=== PATIENT | male | born 1970 | race Caucasian/White ===

== ENCOUNTER 2023-02-11 12:06 | Day surgery (SDC) | payer OTHER ==
[~2023-02-11] VITALS: Ht 167.6 cm; Wt 115.2 kg
[2023-02-11 13:33] LABS: BASOPHILS % (AUTO) 0.3 % (0.0-2.0); EOSINOPHILS # (AUTO) 0.3 K/uL (0-0.4); EOSINOPHILS % (AUTO) 3.3 % (0.0-4.0); HEMOGLOBIN 14.5 g/dL (12.0-18.0); LYMPHOCYTES # (AUTO) 2.9 K/uL (2.0-11.5); LYMPHOCYTES % (AUTO) 31.6 % (20.5-51.1); MEAN CORPUSCULAR HEMOGLOBIN 30 pg (27-31); MEAN CORPUSCULAR HGB CONC 34 g/dL (33-37); MEAN CORPUSCULAR VOLUME 89.7 fL (80-94); MONOCYTES # (AUTO) 0.7 K/uL (0.8-1.0); MONOCYTES % (AUTO) 7.9 % (1.7-9.3); NEUTROPHILS # (AUTO) 5.2 K/uL (1.8-7.7); NEUTROPHILS % (AUTO) 56.9 % (42.2-75.2); PLATELET COUNT (AUTO) 217 K/uL (140-450); RED BLOOD CELL COUNT(AUTO) 4.79 MIL/uL (4.20-6.10); RED CELL DISTRIBUTION WIDTH 13.3 % (11.6-13.7); WHITE BLOOD COUNT (AUTO) 9.1 K/uL (4.8-10.8)
[2023-02-11 13:37] LABS: PROTHROMBIN TIME 10.6 secs (10.8-13.4)
[2023-02-11] MEDS ORDERED: LIDOCAINE MPF 2% 100 MG/5 ML VIAL INJ ONE ×2 (13:40→14:40)
[2023-02-11] MEDS ORDERED: fentaNYL citrate 0.05 MG/ML VIAL ONE (13:40)
[2023-02-11] MEDS ORDERED: fentaNYL citrate 0.05 MG/ML VIAL IVP ONE (15:30)
== END 2023-02-11 16:06 | disposition home or self-care (01) ==
LOC: MDS 12:06 → MMU 12:46 → MDS 16:06
PROVIDERS: ATTEND Internal Medicine Gastroenterology
DX: K75.81 Nonalcoholic steatohepatitis (NASH) (principal)
CPT/HCPCS: 36415; 47000; 76942; 85025; 85610; 85730; J2001; J3010; Q0092